=== PATIENT | female | born 1950 | race Caucasian/White ===

== ENCOUNTER 2016-07-15 18:45 | Emergency (ER) | payer BC ==
--- NOTE | 2016-07-15 21:13 | ED ORDER SUMMARY ---
..... Patient: SIVAN GONZALES OrderSheet [facility] VisitID: [id number] [address] [place] [address] 66y, F Registration Date/Time: 07/15/2016 ORDER SHEET Weight: 68.0 kg (stated) Allergies: No Known Drug Allergy GENERAL ORDERS: Computer Systems Information Director (Continuous) (19:59 07/15/2016 EKoroleva P.A.-C) (Ack 20:01 TBergley) (20:11 Nimisha R.N.) Chest 1V Urgent (20:00 07/15/2016 EKoroleva P.A.-C) (Ack 20:01 TBergley) (Cancelled: Other20:02 EKoroleva P.A.-C) Cardiac Panel Stat (20:00 07/15/2016 EKoroleva P.A.-C) (Ack 20:01 TBergley) (Cancelled: Other20:02 EKoroleva P.A.-C) PTT Urgent (20:00 07/15/2016 EKoroleva P.A.-C) (Ack 20:01 TBergley) (Cancelled: Other20:02 EKoroleva P.A.-C) PT with INR Urgent (20:00 07/15/2016 EKoroleva P.A.-C) (Ack 20:01 TBergley) (Cancelled: Other20:02 EKoroleva P.A.-C) EKG - ER Stat (20:00 07/15/2016 EKoroleva P.A.-C) (Ack 20:01 TBergley) (20:17 TBergley) CBC w Diff Urgent (20:03 07/15/2016 EKoroleva P.A.-C) (Ack 20:05 TBergley) (20:07 TBergley) BMP Urgent (20:03 07/15/2016 EKoroleva P.A.-C) (Ack 20:05 TBergley) (20:07 TBergley) Chest 1V Urgent (20:12 07/15/2016 EKoroleva P.A.-C) (Ack 20:14 TBermarthaey) (20:15 Nimisha Simms) MEDICATION ORDERS: IV FLUIDS: IV Saline Lock (20:00 07/15/2016 Jarrod Helton) (20:11 Nimisha Simms) Valium IV 2 mg (HIGH ALERT MEDICATION, NOW) (20:11 07/15/2016 Jarrod Helton) (20:26 Nimisha Simms) ORDER SHEET NOTES: [Electronically signed by Real Heller R.N. (21:43 07/15/2016)] [Electronically signed by Lexy Perry P.A.-C (23:20 07/15/2016)] [Electronically locked/signed by Real Heller R.N. (21:43 07/15/2016)]
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
--- NOTE | 2016-07-15 21:13 | ED ORDER SUMMARY ---
..... Patient: SIVAN GONZALES OrderSheet [facility] VisitID: [id number] [address] [place] [address] 66y, F Registration Date/Time: 07/15/2016 ORDER SHEET Weight: 68.0 kg (stated) Allergies: No Known Drug Allergy GENERAL ORDERS: Yarn Tester (Continuous) (19:59 07/15/2016 EKoroleva P.A.-C) (Ack 20:01 TBergley) (20:11 Nimisha R.N.) Chest 1V Urgent (20:00 07/15/2016 EKoroleva P.A.-C) (Ack 20:01 TBergley) (Cancelled: Other20:02 EKoroleva P.A.-C) Cardiac Panel Stat (20:00 07/15/2016 EKoroleva P.A.-C) (Ack 20:01 TBergley) (Cancelled: Other20:02 EKoroleva P.A.-C) PTT Urgent (20:00 07/15/2016 EKoroleva P.A.-C) (Ack 20:01 TBergley) (Cancelled: Other20:02 EKoroleva P.A.-C) PT with INR Urgent (20:00 07/15/2016 EKoroleva P.A.-C) (Ack 20:01 TBergley) (Cancelled: Other20:02 EKoroleva P.A.-C) EKG - ER Stat (20:00 07/15/2016 EKoroleva P.A.-C) (Ack 20:01 TBergley) (20:17 TBergley) CBC w Diff Urgent (20:03 07/15/2016 EKoroleva P.A.-C) (Ack 20:05 TBergley) (20:07 TBergley) BMP Urgent (20:03 07/15/2016 EKoroleva P.A.-C) (Ack 20:05 TBergley) (20:07 TBergley) Chest 1V Urgent (20:12 07/15/2016 EKoroleva P.A.-C) (Ack 20:14 TBermarthaey) (20:15 Nimisha Simms) MEDICATION ORDERS: IV FLUIDS: IV Saline Lock (20:00 07/15/2016 Jarrod Helton) (20:11 Nimisha Simms) Valium IV 2 mg (HIGH ALERT MEDICATION, NOW) (20:11 07/15/2016 Jarrod Helton) (20:26 Nimisha Simms) ORDER SHEET NOTES: [Electronically signed by Real Heller R.N. (21:43 07/15/2016)] [Electronically signed by Lexy Perry P.A.-C (23:20 07/15/2016)] [Electronically locked/signed by Real Heller R.N. (21:43 07/15/2016)]
--- NOTE | 2016-07-15 21:19 | DIAGNOSTIC IMAGING REPORT ---
PROCEDURE: XR CHEST 1 VIEW INDICATION: CHEST PAIN, initial encounter TECHNIQUE: Portable AP view 08:05 p.m. COMPARISON: None. FINDINGS: Lungs are clear. Heart and mediastinum are normal. Thorax is normal. IMPRESSION: 1. Negative chest.
--- NOTE | 2016-07-15 23:20 | ED DISCHARGE INSTRUCTIONS ---
Patient: SIVAN GONZALES General Instructions [facility] VisitID: [id number] [address] [place] [address] 66y, F Registration Date/Time: 07/15/2016 Acute vertigo. INSTRUCTIONS Rest. Drink plenty of fluids. Prescription Medications: valium 2 mg po prn aliya, # 4. Follow-up: Follow up with your doctor in three days. ADDITIONAL INFORMATION Vertigo [Unknown Cause] The "inner ear" is located behind the middle ear. It is part of the balance center of your body. Disease of the inner ear causes vertigo -- a false feeling of motion. It feels as if you or the room is spinning. A vertigo attack may cause sudden nausea, vomiting and heavy sweating. Severe vertigo causes a loss of balance and can cause you to fall. During vertigo, small head movements and changes in body position will often make the symptoms worse. The causes of vertigo include: Inflammation of the inner ear Disease of the nerves to the inner ear Movement of calcium particles in the inner ear Poor blood flow to the balance centers of the brain An episode of vertigo may last seconds, minutes or hours. Once you are over the first episode, it may never return. However, sometimes symptoms may recur off and on over several weeks or longer, depending on the cause. There may be ringing in the ears or hearing loss, which may be temporary or permanent. Home Care: If symptoms are severe, rest quietly in bed. Change positions very slowly. There is usually one position that will feel best, such as lying on one side or lying on your back with your head slightly raised on pillows. Do not drive or work with dangerous machinery for one week after symptoms go away, in case the symptoms suddenly return. Take medicine as prescribed to relieve your symptoms. Unless another medicine was prescribed for nausea, vomiting and vertigo, you may use loyc-jrr-xraurpq motion sickness pills, such as meclizine (Bonine, Bonamine, Antivert) or dimenhydrinate (Dramamine). Follow Up with your doctor or as directed by our staff. Tell the doctor if your ears keep ringing, or if your hearing does not return to normal. Get Prompt Medical Attention if any of the following occur: Vertigo gets worse and is not controlled by medicine prescribed Repeated vomiting not relieved by medicine prescribed Increased weakness or fainting Severe headache or unusually drowsy or confused Weakness of an arm or leg or one side of the face Difficulty with speech or vision You have been given the following additional information: Vertigo, Unspecified Rest. (Electronically signed by Lexy Perry P.A.-C 07/15/2016 23:20)
--- NOTE | 2016-07-15 23:20 | ED DISCHARGE INSTRUCTIONS ---
Patient: SIVAN GONZALES General Instructions [facility] VisitID: [id number] [address] [place] [address] 66y, F Registration Date/Time: 07/15/2016 Acute vertigo. INSTRUCTIONS Rest. Drink plenty of fluids. Prescription Medications: valium 2 mg po prn aliya, # 4. Follow-up: Follow up with your doctor in three days. ADDITIONAL INFORMATION Vertigo [Unknown Cause] The "inner ear" is located behind the middle ear. It is part of the balance center of your body. Disease of the inner ear causes vertigo -- a false feeling of motion. It feels as if you or the room is spinning. A vertigo attack may cause sudden nausea, vomiting and heavy sweating. Severe vertigo causes a loss of balance and can cause you to fall. During vertigo, small head movements and changes in body position will often make the symptoms worse. The causes of vertigo include: Inflammation of the inner ear Disease of the nerves to the inner ear Movement of calcium particles in the inner ear Poor blood flow to the balance centers of the brain An episode of vertigo may last seconds, minutes or hours. Once you are over the first episode, it may never return. However, sometimes symptoms may recur off and on over several weeks or longer, depending on the cause. There may be ringing in the ears or hearing loss, which may be temporary or permanent. Home Care: If symptoms are severe, rest quietly in bed. Change positions very slowly. There is usually one position that will feel best, such as lying on one side or lying on your back with your head slightly raised on pillows. Do not drive or work with dangerous machinery for one week after symptoms go away, in case the symptoms suddenly return. Take medicine as prescribed to relieve your symptoms. Unless another medicine was prescribed for nausea, vomiting and vertigo, you may use bwwe-beq-cmwgowt motion sickness pills, such as meclizine (Bonine, Bonamine, Antivert) or dimenhydrinate (Dramamine). Follow Up with your doctor or as directed by our staff. Tell the doctor if your ears keep ringing, or if your hearing does not return to normal. Get Prompt Medical Attention if any of the following occur: Vertigo gets worse and is not controlled by medicine prescribed Repeated vomiting not relieved by medicine prescribed Increased weakness or fainting Severe headache or unusually drowsy or confused Weakness of an arm or leg or one side of the face Difficulty with speech or vision You have been given the following additional information: Vertigo, Unspecified Rest. (Electronically signed by Lexy Perry P.A.-C 07/15/2016 23:20)
--- NOTE | 2016-07-15 23:20 | ED MAR SUMMARY ---
..... Medication Administration Record [facility] [address] [place] [address] Patient: SIVAN GONZALES Visit ID: [id number] 66y, F Weight: 68.0 kg Height/Length: 63 in BMI: 26.6 ALLERGIES: No Known Drug Allergy Given 20:26 07/15/2016 Real Heller R.N. Medication Administered: VALIUM [IVP] (DIAZEPAM), Dose: 2 mg IVP, Site: #1 right AC. Medication Ordered: Valium IV 2 mg (HIGH ALERT MEDICATION, NOW).
--- NOTE | 2016-07-15 23:20 | ED MED RECONCILIATION SUMMARY ---
Patient: SIVAN GONZALES Medication Reconciliation Report [facility] VisitID: [id number] [address] [place] [address] 66y, F Registration Date/Time: 07/15/2016 Weight: 68.0 kg Height/Length: 63 in. BMI: 26.6 ALLERGIES: No Known Drug Allergy The patient's Home Medications are listed below: NONE. The source(s) of the original Home Medication information: Not obtained. The following Medications were given to the patient in the Emergency Department: Valium [IVP] IVP 2 mg, administered: 07/15/2016 8:26:00 PM The following Medications were prescribed to the patient: valium 2 mg po prn aliya, # 4. -- Lexy Perry P.A.-C
--- NOTE | 2016-07-15 23:20 | ED MED RECONCILIATION SUMMARY ---
Patient: SIVAN GONZALES Medication Reconciliation Report [facility] VisitID: [id number] [address] [place] [address] 66y, F Registration Date/Time: 07/15/2016 Weight: 68.0 kg Height/Length: 63 in. BMI: 26.6 ALLERGIES: No Known Drug Allergy The patient's Home Medications are listed below: NONE. The source(s) of the original Home Medication information: Not obtained. The following Medications were given to the patient in the Emergency Department: Valium [IVP] IVP 2 mg, administered: 07/15/2016 8:26:00 PM The following Medications were prescribed to the patient: valium 2 mg po prn aliya, # 4. -- Lexy Perry P.A.-C
--- NOTE | 2016-07-15 23:20 | ED MAR SUMMARY ---
..... Medication Administration [facility] [address] [place] [address] Patient: SIVAN GONZALES Visit ID: [id number] 66y, F Weight: 68.0 kg Height/Length: 63 in BMI: 26.6 ALLERGIES: No Known Drug Allergy Given 20:26 07/15/2016 Real Heller R.N. Medication Administered: VALIUM [IVP] (DIAZEPAM), Dose: 2 mg IVP, Site: #1 right AC. Medication Ordered: Valium IV 2 mg (HIGH ALERT MEDICATION, NOW).
== END 2016-07-15 21:33 | disposition home or self-care (01) ==
LOC: ED SRH 18:45
DX: R42 Dizziness and giddiness (principal)
CPT/HCPCS: 90100; 90616; 92610; 92720; 94001; 94060; 95059